=== PATIENT | female | born 2000 | race Caucasian/White ===

== ENCOUNTER 2023-01-18 09:02 | Emergency (ER) | payer OTHER ==
[2023-01-18] MEDS ORDERED: Zofran 4 MG/2 ML VIAL IV ONE (09:12)
[2023-01-18] MEDS ORDERED: Sodium Chloride 0.9% 1000 ML 1,000 ML IV STA (09:12)
[2023-01-18] MEDS ORDERED: Sodium Chloride 0.9% 1000 ML 1,000 ML ONE (09:15)
[2023-01-18] MEDS ORDERED: Zofran 4 MG/2 ML VIAL ONE (09:15)
[2023-01-18 09:41] LABS: Absolute Neutrophil Ct (ANC) 10.97 x10^3/uL (1.4-6.9); BASOPHIL % 0.3 % (0.0-0.4); Basophil (Absolute #) 0.04 x10^3/uL (0-0.4); Eosinophil % 0.9 % (0.00-5.0); Eosinophil (Absolute #) 0.13 x10^3/uL (0-0.5); Hematocrit 36.6 % (35-47); Hemoglobin 11.7 g/dL (12.0-16.0); IMMATURE GRAN # 0.12 x10^3u/L (0.00-0.03); IMMATURE GRAN % 0.9 % (0.00-0.4); Lymphocyte (Absolute #) 1.89 x10^3/uL (1.0-4.6); Lymphocytes % 13.8 % (24.0-44.0); Mean Cell Volume 92.2 fL (78-100); Mean Corpuscular Hemoglobin 29.5 pg (26-32); Mean Platelet Volume 10.4 fL (7.5-11.0); Monocyte (Absolute #) 0.58 x10^3/uL (0.0-1.3); Monocytes % 4.2 % (0.0-12.0); Neutrophil % 79.9 % (36.0-66.0); Platelet Count 226 x10^3/uL (150-450); Red Blood Count 3.97 x10^6/uL (4.1-5.4); Red Cell Distribution Width 13.8 % (11.5-14.0); White Blood Count 13.7 x10^3/uL (4.0-10.5)
--- NOTE | 2023-01-18 09:52 | ERPHSYRPT ---
- History of Present Illness Time Seen by Provider: 01/18/23 09:12 Source: patient Exam Limitations: no limitations Patient Subjective Stated Complaint: Syncope Triage Nursing Assessment: Patient work at [employer] in [employer]. This nurse and a medic student was over in CT assisting with moving a patient. Patient was in CT control and yelled at this nurse stating she didn't feel right and was dizzy. This nurse told patient to sit down. Patient was sitting in chair while this nurse was assisting patient when I heard a thud Patient had a syncopal episode while sitting in chair. Patient out for less than 1 minute. Patient's skin pale, cool and diaphoretic. Patient currently 32 weeks . Blood sugar noted to be 98. Patient denies pain or discomfort. Physician History: 22 years old 1 para 0 at almost 32 weeks gestation is rolled in the ER from [place] with syncopal episode. Patient works as a tax technician, was standing for few minutes and started to feel dizzy/lightheaded, feeling of warmth all over and fell off of the chair with LOC for less than 1 minute. Back to normal when rapid response was called. Patient denies any headache, chest pain palpitations or shortness of breath. Denies any pelvic cramping/vaginal bleeding or discharge. Has a heart tone in 140s. Does report having history of syn copal episodes like this even before after exertion. Timing/Duration: today, resolved prior to arrival, sudden Severity: moderate Associated Symptoms: syncope, No nausea, No vomiting, No abdominal pain, No shortness of breath, No diaphoresis, No chest pain, No headaches, No seizure, No weakness Allergies/Adverse Reactions: No Known Drug Allergies Allergy (Unverified 01/18/23 09:07) Home Medications: No122/Iron/Folic Acid [ Multi Tablet] 1 tab PO DAILY 01/18/23 [History] Hx Tetanus, Diphtheria Vaccination/Date Given: No Hx Influenza Vaccination/Date Given: Yes Hx Pneumococcal Vaccination/Date Given: No Immunizations Up to Date: Yes Travel Risk - International Travel Have you traveled outside of the country in past 3 weeks: No - Coronavirus Screening Are you exhibiting any of the following symptoms?: No Close contact with a COVID-19 positive Pt in past 14-21 Days: No - Vaccine Status Have you recieved a Covid-19 vaccination: Yes [employer]: [employer] - Vaccination Dates Date of 2cond Vaccination (if applicable): na - Review of Systems Constitutional: Fatigue, Weakness Eyes: No Symptoms Ears, Nose, & Throat: No Symptoms Respiratory: No Symptoms Cardiac: No Symptoms Abdominal/Gastrointestinal: No Symptoms Genitourinary Symptoms: No Symptoms Musculoskeletal: No Symptoms Skin: No Symptoms Neurological: Dizziness Psychological: No Symptoms Endocrine: No Symptoms Hematologic/Lymphatic: No Symptoms Immunological/Allergic: No Symptoms - Past Medical History Pertinent Past Medical History: No Neurological History: No Pertinent History ENT History: No Pertinent History Cardiac History: No Pertinent History Respiratory History: No Pertinent History Endocrine Medical History: No Pertinent History Musculoskeletal History: No Pertinent History GI Medical History: No Pertinent History History: No Pertinent History Psycho-Social History: No Pertinent History Female Reproductive Disorders: No Pertinent History - Past Surgical History Past Surgical History: No Neuro Surgical History: No Pertinent History Cardiac: No Pertinent History Respiratory: No Pertinent History Gastrointestinal: No Pertinent History Genitourinary: No Pertinent History Musculoskeletal: No Pertinent History Female Surgical History: No Pertinent History - Social History Smoking Status: Never smoker Exposure to second hand smoke: No Drug Use: none Patient Lives Alone: No - Female History Hx Last Menstrual Period: June 05, 2023 Hx Now: Yes Gestational Age: 32 weeks - Nursing Vital Signs Nursing Vital Signs: Initial Vital Signs Temperature 97.1 F 01/18/23 09:08 Pulse Rate 85 01/18/23 09:08 Respiratory Rate 18 01/18/23 09:08 Blood Pressure 153/103 01/18/23 09:08 O2 Sat by Pulse Oximetry 98 01/18/23 09:08 Pain Scale Pain Intensity 0 - Physical Exam General Appearance: no apparent distress, alert Eye Exam: PERRL/EOMI Ears, Nose, Throat Exam: normal ENT inspection Neck Exam: normal inspection, non-tender, supple, full range of motion Respiratory Exam: normal breath sounds, lungs clear Cardiovascular Exam: regular rate/rhythm, normal heart sounds Gastrointestinal/Abdomen Exam: soft, normal bowel sounds, other (Gravid uterus), No tenderness Back Exam: normal inspection Extremity Exam: normal inspection, normal range of motion Neurologic Exam: alert, oriented x 3, cooperative, 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, normal mood/affect, nml cerebellar function, sensation nml, No motor deficits, No sensory deficit Skin Exam: normal color SpO2 Interpretation: normal SpO2: 98 O2 Delivery: Room Air - Course EKG Interpreted by Me: RATE (105), Sinus Tach, NORMAL AXIS, NORMAL INTERVALS, Non-specific ST Changes Ordered Tests: Active Orders 24 hr Category Date Time Status EKG-ER Only STAT Care 01/18/23 09:12 Active IV Insertion STAT Care 01/18/23 09:12 Active Orthostatic Vital Signs STAT Care 01/18/23 09:13 Active OB >14 WKS 1st GESTATION [US] Stat Exams 01/18/23 09:52 Ordered CBC W DIFF Stat Lab 01/18/23 09:38 Completed CMP Stat Lab 01/18/23 09:15 Completed CULTURE,URINE Stat Lab 01/18/23 09:34 Received TROPONIN Q4H Lab 01/18/23 09:15 Completed TROPONIN Q4H Lab 01/18/23 13:15 Ordered TROPONIN Q4H Lab 01/18/23 17:15 Ordered UA W/RFX UR CULTURE Stat Lab 01/18/23 09:34 Completed Medication Summary Generic Name Dose Route Start Last Admin Trade Name Freq PRN Reason Stop Dose Admin Ceftriaxone Sodium/Dextrose 2 g in 50 mls @ 100 mls/hr 01/18/23 11:33 01/18/23 11:49 Rocephin 2 Gm-D5w 50ml Bag IV 01/18/23 12:02 100 mls/hr STAT STA 100 mls/hr Administration Discontinued Medications Generic Name Dose Route Start Last Admin Trade Name Freq PRN Reason Stop Dose Admin Sodium Chloride 1,000 mls @ 999 mls/hr 01/18/23 09:12 01/18/23 10:51 Sodium Chloride 0.9% 1000 Ml IV 01/18/23 10:12 Infused .Q1H1M STA Infusion Sodium Chloride Confirm 01/18/23 09:15 Sodium Chloride 0.9% 1000 Ml Administered 01/18/23 09:16 Dose 1,000 mls @ ud .ROUTE .STK-MED ONE Ceftriaxone Sodium/Dextrose Confirm 01/18/23 11:46 Rocephin 2 Gm-D5w 50ml Bag Administered 01/18/23 11:47 Dose 2 g in 50 mls @ ud IV .STK-MED ONE Ondansetron HCl 4 mg 01/18/23 09:12 01/18/23 09:36 Ondansetron Hcl 4 Mg/2 Ml Vial IV 01/18/23 09:13 4 mg STAT ONE Administration Ondansetron HCl Confirm 01/18/23 09:15 Ondansetron Hcl 4 Mg/2 Ml Vial Administered 01/18/23 09:16 Dose 4 mg .ROUTE .STK-MED ONE Lab/Rad Data: Laboratory Result Diagrams 01/18/23 09:38 01/18/23 09:15 Laboratory Results 01/18/23 01/18/23 01/18/23 Range/Units 09:38 09:34 09:15 WBC 13.7 H (4.0-10.5) x10^3/uL RBC 3.97 L (4.1-5.4) x10^6/uL Hgb 11.7 L (12.0-16.0) g/dL Hct 36.6 (35-47) % MCV 92.2 (78-100) fL MCH 29.5 (26-32) pg MCHC 32.0 (32-36) g/dL RDW 13.8 (11.5-14.0) % Plt Count 226 (150-450) x10^3/uL MPV 10.4 (7.5-11.0) fL Gran % 79.9 H (36.0-66.0) % Immature Gran % (Auto) 0.9 H (0.00-0.4) % Nucleat RBC Rel Count 0.0 (0.00-0.1) % Eos # (Auto) 0.13 (0-0.5) x10^3/uL Immature Gran # (Auto) 0.12 H (0.00-0.03) x10^3u/L Absolute Lymphs (auto) 1.89 (1.0-4.6) x10^3/uL Absolute Monos (auto) 0.58 (0.0-1.3) x10^3/uL Absolute Nucleated RBC 0.00 (0.00-0.01) x10^3u/L Lymphocytes % 13.8 L (24.0-44.0) % Monocytes % 4.2 (0.0-12.0) % Eosinophils % 0.9 (0.00-5.0) % Basophils % 0.3 (0.0-0.4) % Absolute Granulocytes 10.97 H (1.4-6.9) x10^3/uL Basophils # 0.04 (0-0.4) x10^3/uL Sodium (137-145) mmol/L Potassium (3.5-5.1) mmol/L Chloride (98-107) mmol/L Carbon Dioxide (22-30) mmol/L Anion Gap (5-15) MEQ/L BUN (7-17) mg/dL Creatinine (0.52-1.04) mg/dL Estimated GFR ML/MIN Glucose (74-106) mg/dL Calcium (8.4-10.2) mg/dL Total Bilirubin (0.2-1.3) mg/dL AST (14-36) U/L ALT (0-35) U/L Alkaline Phosphatase (38-126) U/L Troponin I < 0.012 (0.000-0.034) ng/mL Serum Total Protein (6.3-8.2) g/dL Albumin (3.5-5.0) g/dL Urine Color Yellow (Yellow) Urine Appearance Cloudy A (Clear) Urine pH 6.0 (4.6-8.0) Ur Specific Frakes 1.025 (1.005-1.030) Urine Protein 30 (Negative) Urine Glucose (UA) Negative (Negative) mg/dL Urine Ketones Negative (Negative) Urine Blood Negative (Negative) Urine Nitrite Negative (Negative) Urine Bilirubin Negative (Negative) Urine Urobilinogen 1.0 A (0.2) mg/dL Ur Leukocyte Esterase Negative (Negative) U Hyaline Cast (Auto) 3-5 A (0-2) /LPF Urine Microscopic RBC 0-2 (0-5) /HPF Urine Microscopic WBC 11-20 A (0-5) /HPF Ur Epithelial Cells Few (None Seen) /HPF Urine Bacteria Many A (None Seen) /HPF Urine Culture Reflexed YES (NO) 01/18/23 Range/Units 09:15 WBC (4.0-10.5) x10^3/uL RBC (4.1-5.4) x10^6/uL Hgb (12.0-16.0) g/dL Hct (35-47) % MCV (78-100) fL MCH (26-32) pg MCHC (32-36) g/dL RDW (11.5-14.0) % Plt Count (150-450) x10^3/uL MPV (7.5-11.0) fL Gran % (36.0-66.0) % Immature Gran % (Auto) (0.00-0.4) % Nucleat RBC Rel Count (0.00-0.1) % Eos # (Auto) (0-0.5) x10^3/uL Immature Gran # (Auto) (0.00-0.03) x10^3u/L Absolute Lymphs (auto) (1.0-4.6) x10^3/uL Absolute Monos (auto) (0.0-1.3) x10^3/uL Absolute Nucleated RBC (0.00-0.01) x10^3u/L Lymphocytes % (24.0-44.0) % Monocytes % (0.0-12.0) % Eosinophils % (0.00-5.0) % Basophils % (0.0-0.4) % Absolute Granulocytes (1.4-6.9) x10^3/uL Basophils # (0-0.4) x10^3/uL Sodium 137 (137-145) mmol/L Potassium 3.6 (3.5-5.1) mmol/L Chloride 107 (98-107) mmol/L Carbon Dioxide 20 L (22-30) mmol/L Anion Gap 13.7 (5-15) MEQ/L BUN 8 (7-17) mg/dL Creatinine 0.48 L (0.52-1.04) mg/dL Estimated GFR > 60.0 ML/MIN Glucose 89 (74-106) mg/dL Calcium 8.9 (8.4-10.2) mg/dL Total Bilirubin 0.30 (0.2-1.3) mg/dL AST 26 (14-36) U/L ALT 21 (0-35) U/L Alkaline Phosphatase 94 (38-126) U/L Troponin I (0.000-0.034) ng/mL Serum Total Protein 7.1 (6.3-8.2) g/dL Albumin 3.7 (3.5-5.0) g/dL Urine Color (Yellow) Urine Appearance (Clear) Urine pH (4.6-8.0) Ur Specific Frakes (1.005-1.030) Urine Protein (Negative) Urine Glucose (UA) (Negative) mg/dL Urine Ketones (Negative) Urine Blood (Negative) Urine Nitrite (Negative) Urine Bilirubin (Negative) Urine Urobilinogen (0.2) mg/dL Ur Leukocyte Esterase (Negative) U Hyaline Cast (Auto) (0-2) /LPF Urine Microscopic RBC (0-5) /HPF Urine Microscopic WBC (0-5) /HPF Ur Epithelial Cells (None Seen) /HPF Urine Bacteria (None Seen) /HPF Urine Culture Reflexed (NO) - Progress Progress: improved Progress Note: 01/18/23 09:53 22 years old 1 para 0 at almost 32 weeks gestation is rolled in the ER from CT with syncopal episode. Patient works as a tax technician, was standing for few minutes and started to feel dizzy/lightheaded, feeling of warmth all over and fell off of the chair with LOC for less than 1 minute. Back to normal when rapid response was called. Patient denies any headache, chest pain palpitations or shortness of breath. Denies any pelvic cramping/vaginal bleeding or discharge. Has a heart tone in 140s. Does report having history of syncopal episodes like this even before after exertion. She is not in any distress. Nonfocal neuro exam. Does not have any head or neck pain. No abdominal tenderness. She is given fluid bolus, feeling much better on reevaluation. Will obtain baseline labs and ultrasound as patient is unsure of if she hit her belly or not. 01/18/23 09:[address] Rojas OB on-call, reviewed history, agreed with obtaining ult rasound along with baseline work-up and if negative patient would be discharged to go to OB for monitoring. 01/18/23 11:50 Patient is back to her baseline, not in any distress. Denies any new symptoms. Baseline work-up showed white count of 13, fairly unremarkable chemistries. Does have UTI and given a dose of Rocephin and will continue with Keflex to go home. I have obtained ultrasound which showed good heart tones/ movement/no acute pathology of placenta, normal fluid levels, long and closed cervix per preliminary report is pending. Patient would be discharged to go to OB for further evaluation and management per OB physician. I have discussed the results of work-up and plan with patient in detail who understand and agrees with it. 01/18/23 11:52 Discussed with DrKong: Porfirio Counseled pt/family regarding: lab results, diagnosis, need for follow-up, rad results Medical Desision Making - Independent Historian Additional History obtained from: Family - Discussion of managment Care discussed with:: specialist (Review Dr. Rojas) Reviewed:: Need for additional workup Agreed on:: place in obs - Diagnostic Testing Diagnostic test were ordered, analyzed, and reviewed by me: Yes Radiological Interpretation: Reviewed by me - Departure Departure Disposition: Home (To obstetric) Clinical Impression: Syncope and collapse, UTI in Condition: Stable Critical Care Time: No Referrals: GALILEA JULIAN MD [Primary Care Provider] - Follow up with PCP 1 day Instructions: Syncope (Fainting) (DC) Additional Instructions: Go to OB for reevaluation and further management per OB physician recommendations. Drink plenty of fluids to keep yourself well-hydrated. Continue with antibiotics for UTI. Return to ER/call OB if have any worsening of condition like dizziness, abdominal/pelvic pain/vaginal bleeding/headache neck pain etc. Prescriptions: Cephalexin Mh 500 mg [Keflex 500 mg] 500 mg PO TID #21 cap
[2023-01-18 10:07] LABS: ALBUMIN 3.7 g/dL (3.5-5.0); ALKALINE PHOSPHATASE 94 U/L (38-126); ANION GAP 13.7 MEQ/L (5-15); BLOOD UREA NITROGEN 8 mg/dL (7-17); CHLORIDE 107 mmol/L (98-107); Calcium 8.9 mg/dL (8.4-10.2); Carbon Dioxide 20 mmol/L (22-30); Creatinine 1 0.48 mg/dL (0.52-1.04); EST GLOMERULAR FILTRATION RATE > 60.0 ML/MIN; Glucose 89 mg/dL (74-106); Potassium 3.6 mmol/L (3.5-5.1); SGOT/AST 26 U/L (14-36); SGPT/ALT 21 U/L (0-35); SODIUM 137 mmol/L (137-145); Total Protein 7.1 g/dL (6.3-8.2)
[2023-01-18 10:24] LABS: Appearance Cloudy (Clear); Bacteria Many /HPF (None Seen); Bilirubin Negative (Negative); Blood Negative (Negative); Epithelial Cells Few /HPF (None Seen); Glucose, Urine Negative (Negative); Ketones Negative (Negative); Leukocyte Esterase Negative (Negative); Nitrite Negative (Negative); Protein,Urine Dip 30 (Negative); RBC 0-2 /HPF (0-5); Specific Gravity 1.025 (1.005-1.030)
[2023-01-18 10:32] LABS: ADD URINE CULTURE? YES (NO)
[2023-01-18] MEDS ORDERED: ROCEPHIN 2 Gm-D5w 50ML BAG** 2 G/50 ML IVPB IV STA (11:33)
[2023-01-18] MEDS ORDERED: ROCEPHIN 2 Gm-D5w 50ML BAG** 2 G/50 ML IVPB IV ONE (11:46)
[2023-01-18 12:34] VITALS: BP 120/85
[2023-01-18 12:41] VITALS: PULSE 98; O2SAT 98
--- NOTE | 2023-01-18 19:30 | XRAY ---
Indication: Status post fall. Two-dimensional Limited OB ultrasound performed. Comparison: None Single intrauterine in cephalic presentation. heart rate 135 BPM. Posterior placenta without abruption/previa. Nonspecific bilateral renal pelvic prominence measuring 3.6 mm and 4.5 mm each without hydronephrosis. Cervical length is 4.7 cm. BPD measures 8.26 cm corresponding to 33 weeks 2 days. HC measures 29.32 cm corresponding to 32 weeks 2 days. AC measures 28.07 cm corresponding to 32 weeks 1 day. FL measures 6.20 cm corresponding to 32 weeks 1 day. PALMA is 11.6 cm. Impression: Single viable intrauterine with mean gestational age 32 weeks 3 days. Expected date confinement is March 12, 2023. Nothing acute. Comment: Preliminary report was given.
== END 2023-01-18 12:40 | disposition home or self-care (01) ==
LOC: ED 09:02 → OB 12:43 → UNDOADMOB 12:43
DX: O23.43 Unspecified infection of urinary tract in pregnancy, third trimester (principal); N39.0 Urinary tract infection, site not specified; Z3A.32 32 weeks gestation of pregnancy; R55 Syncope and collapse
CPT/HCPCS: 36000; 36415; 76805; 80053; 81001; 84484; 85025; 87086; 93005; 96360; 96365; 96374; 99284; J0696; J2405

== ENCOUNTER 2023-01-18 12:54 | Observation (INO) | payer OTHER ==
[2023-01-18 13:23] VITALS: BP 113/66; PULSE 87
[2023-01-18 14:24] VITALS: O2SAT 97
== END 2023-01-18 15:55 | disposition home or self-care (01) ==
LOC: UNDOADMOB 12:54 → OB 12:54
PROVIDERS: ADMIT Obstetrics & Gynecology; ATTEND Obstetrics & Gynecology
DX: Z34.03 Encounter for supervision of normal first pregnancy, third trimester (principal); Z3A.32 32 weeks gestation of pregnancy
CPT/HCPCS: G0378

== ENCOUNTER 2023-03-18 08:20 | Inpatient (IN) | payer OTHER ==
[2023-03-18 18:15] LABS: Absolute Neutrophil Ct (ANC) 11.83 x10^3/uL (1.4-6.9); BASOPHIL % 0.3 % (0.0-0.4); Basophil (Absolute #) 0.05 x10^3/uL (0-0.4); Eosinophil % 0.7 % (0.00-5.0); Hematocrit 37.2 % (35-47); Hemoglobin 12.2 g/dL (12.0-16.0); IMMATURE GRAN # 0.11 x10^3u/L (0.00-0.03); IMMATURE GRAN % 0.7 % (0.00-0.4); Lymphocyte (Absolute #) 2.42 x10^3/uL (1.0-4.6); Lymphocytes % 15.9 % (24.0-44.0); Mean Corpuscular Hemoglobin 29.8 pg (26-32); Mean Corpuscular Hgb Concent. 32.8 g/dL (32-36); Mean Platelet Volume 10.8 fL (7.5-11.0); Monocyte (Absolute #) 0.69 x10^3/uL (0.0-1.3); Monocytes % 4.5 % (0.0-12.0); Neutrophil % 77.9 % (36.0-66.0); Platelet Count 251 x10^3/uL (150-450); Red Blood Count 4.09 x10^6/uL (4.1-5.4); Red Cell Distribution Width 13.8 % (11.5-14.0); White Blood Count 15.2 x10^3/uL (4.0-10.5)
[2023-03-18] MEDS: CYTOTEC PO SCH ×3 (18:20→22:15)
[2023-03-18 18:56] LABS: ABO TYPING A; Antibody Screen NEGATIVE (NEGATIVE); RH TYPING POSITIVE
[2023-03-18 19:35] LABS: Amphetamine,Urine NEGATIVE (NEGATIVE); Barbiturate,Urine NEGATIVE (NEGATIVE); Benzodiazepine,Urine NEGATIVE (NEGATIVE); Cocaine,Urine NEGATIVE (NEGATIVE); Methadone,Urine NEGATIVE (NEGATIVE); Opiate,Urine NEGATIVE (NEGATIVE); PCP,Urine NEGATIVE (NEGATIVE); THC,Urine NEGATIVE (NEGATIVE)
[2023-03-19] MEDS: CYTOTEC PO SCH ×4 (00:15→06:15)
[2023-03-19] MEDS ORDERED: OMNIPEN 2 GM*** 2 G in Sodium Chloride 100ML MINI-BAG PLUS 100 ML IV ONE (06:00)
[2023-03-19] MEDS ORDERED: BRETHINE 1 MG/ML SQ PRN (06:00)
[2023-03-19] MEDS ORDERED: PITOCIN 30 UNITS/ LR 500 ML 30 UNITS/500 ML PLAST..BAG IV SCH ×2 (06:00)
[2023-03-19] MEDS ORDERED: Lactated Ringers 1,000 ML IV ONE (08:08)
[2023-03-19] MEDS ORDERED: Ephedrine Sulfate 50 MG/ML IV PRN (08:08)
[2023-03-19] MEDS ORDERED: FENTANYL 2 MCG-BUPIV 0.125%-NS 250 ML Epidur 250 ML EPIDURAL SCH (08:15)
[2023-03-19] MEDS: Lactated Ringers 1,000 ML IV SCH ×3 (08:17→21:33)
[2023-03-19] MEDS ORDERED: XYLOCAINE 1% HCL 20 ML MDV IJ PRN (12:00)
[2023-03-19] MEDS: OMNIPEN 1 GM*** 1 GM in Sodium Chloride 100ML MINI-BAG PLUS 100 ML IV SCH ×3 (13:04→21:10)
[2023-03-19] MEDS ORDERED: Reglan 10 MG/2 ML IV SCH (21:15)
[2023-03-19] MEDS ORDERED: Pepcid 20 MG VIAL IV SCH (21:15)
[2023-03-19] MEDS ORDERED: SOD CITRATE-CITRIC ACID SOLN PO SCH (21:15)
[2023-03-19] MEDS ORDERED: CEFAZOLIN 2 GM-D5W BAG** 2 GM/50 ML ML IV SCH (21:30)
[2023-03-19] MEDS ORDERED: XYLOCAINE 2%/Epi 1:200000 20ML VIAL MPF ONE (21:54)
[2023-03-19] MEDS ORDERED: SUBLIMAZE 100 MCG/2 ML ONE (21:54)
[2023-03-19] MEDS ORDERED: OFIRMEV 100 ML IV ONE (22:01)
[2023-03-19] MEDS ORDERED: BENADRYL 50 MG/ML IV PRN (22:12)
[2023-03-19] MEDS ORDERED: Nubain 10 MG/ML IV PRN (22:12)
[2023-03-19] MEDS ORDERED: DEMEROL 50 MG IV PRN (22:12)
[2023-03-19] MEDS ORDERED: Narcan 0.4 MG/ML IV PRN (22:12)
[2023-03-19] MEDS ORDERED: MORPHINE SULFATE 2 MG INJ IV PRN (22:12)
[2023-03-19] MEDS ORDERED: CLARITIN 10 MG PO PRN (22:12)
[2023-03-19] MEDS ORDERED: Zofran 4 MG/2 ML VIAL IV PRN (22:12)
[2023-03-19] MEDS ORDERED: HOLD NARCOTIC ANALGESICS AND SEDATIVES X24 HR MC PRN (22:12)
[2023-03-19] MEDS ORDERED: PERCOCET TABLET 5/325MG PO PRN (22:18)
[2023-03-19] MEDS ORDERED: Astramorph-Pf 5 MG/10 ML ONE (22:18)
[2023-03-19] MEDS ORDERED: Pitocin 10 UNITS/ML ONE (22:53)
[2023-03-19] MEDS ORDERED: Decadron 4 MG INJ ONE (22:56)
[2023-03-19] MEDS ORDERED: TORAdol 30 mg Injection ONE (22:56)
[2023-03-19] MEDS ORDERED: Naropin 0.5% 30 ML VIAL ONE (22:57)
[2023-03-19] MEDS ORDERED: PHENYLEPHRINE HCL ONE (23:20)
[2023-03-20 05:14] LABS: Absolute Neutrophil Ct (ANC) 20.64 x10^3/uL (1.4-6.9); BASOPHIL % 0.1 % (0.0-0.4); Basophil (Absolute #) 0.03 x10^3/uL (0-0.4); Eosinophil (Absolute #) 0 x10^3/uL (0-0.5); Hematocrit 33.8 % (35-47); Hemoglobin 10.9 g/dL (12.0-16.0); IMMATURE GRAN # 0.18 x10^3u/L (0.00-0.03); IMMATURE GRAN % 0.8 % (0.00-0.4); Lymphocyte (Absolute #) 0.95 x10^3/uL (1.0-4.6); Lymphocytes % 4.3 % (24.0-44.0); Mean Cell Volume 93.1 fL (78-100); Mean Corpuscular Hgb Concent. 32.2 g/dL (32-36); Mean Platelet Volume 11.7 fL (7.5-11.0); Monocyte (Absolute #) 0.38 x10^3/uL (0.0-1.3); Monocytes % 1.7 % (0.0-12.0); Neutrophil % 93.1 % (36.0-66.0); Platelet Count 190 x10^3/uL (150-450); Red Blood Count 3.63 x10^6/uL (4.1-5.4); Red Cell Distribution Width 13.6 % (11.5-14.0); White Blood Count 22.2 x10^3/uL (4.0-10.5)
[2023-03-20 06:25] LABS: Slide Review 1 YES
[2023-03-20] MEDS: OMNIPEN 1 GM*** 1 GM in Sodium Chloride 100ML MINI-BAG PLUS 100 ML IV SCH ×2 (06:33→11:17)
[2023-03-20] MEDS: Dextrose 5%-Lr IV Solution 1000 ML 1,000 ML IV SCH ×2 (06:33→10:44)
[2023-03-20] MEDS: Lactated Ringers 1,000 ML IV SCH ×2 (06:33→06:34)
--- NOTE | 2023-03-20 07:59 | OP ---
SURGERY DATE/TIME: 03/19/2023 5177 PREOPERATIVE DIAGNOSES: 1) Failure to progress in labor. 2) Term intrauterine . POSTOPERATIVE DIAGNOSES: 1) Failure to progress in labor. 2) Term intrauterine . PROCEDURE: Primary low transverse section. SURGEON: Tin Lopez M.D. ANESTHESIA: Spinal by Julian Lazaro CRNA. QUANTITATIVE BLOOD LOSS: 541 ml. IV FLUIDS: 1900 cc of Crystalloid. URINE OUTPUT: 400 ml of clear straw-colored urine. SPECIMEN: None. DESCRIPTION OF PROCEDURE: After informed, written consent was obtained, the patient was taken to the OR. She underwent spinal anesthesia and was prepped and draped in the usual sterile fashion. After adequate level of anesthesia was assessed, a low transverse skin incision was made by knife and carried down through the subcutaneous fat to the level of the fascia. The fascia was nicked on both sides of the midline and extended horizontally using curved Miller scissors. The superior free edge of the fascia was then grasped with Shruti clamps and the underlying rectus muscles were dissected free. The same was repeated inferiorly. The peritoneal cavity was then opened bluntly and extended in horizontal and a bladder flap was created and reflected over the lower uterine segment. A low transverse uterine incision was made by knife and carried down to the level of the amniotic membranes which were artificially ruptured and extended bluntly in horizontal fashion. A viable male infant was delivered from the vertex presentation with caput present. Strong cry immediately present upon delivery. Bulb syringed the oropharynx and nares. The cord was then clamped and cut and he was handed off to the awaiting nursery team. The placenta was extracted and the uterus was exteriorized. The uterine cavity was sponge curetted clean with a lap sponge and then the uterine incision was closed with #1 chromic in running locked fashion. There was a small inferior extension on the right aspect which was also closed with #1 chromic with good closure and good hemostasis achieved. Posterior cul-de-sac was wiped free of blood and clot with a moist lap sponge and the uterus was returned to the peritoneal cavity. The lateral gutters were wiped free of blood and clot with a moist lap sponge and then uterine incision was inspected and noted to have good hemostasis and good closure. Next, the fascia was closed with 0 Vicryl in a running fashion with good closure and good hemostasis at that level as well. The subcutaneous fat was irrigated with warm, sterile saline and finally the skin layer was closed with 4-0 undyed Vicryl in running subcuticular fashion. Steri-Strips and occlusive dressing were placed over the incision and the patient was transferred to the recovery room in good condition.
[2023-03-20] MEDS ORDERED: LANSINOH 40 GM TOP PRN (09:55)
[2023-03-20] MEDS: Docusate Sodium 100 MG PO SCH ×2 (10:41→21:30)
[2023-03-20] MEDS: FERREX 150 PO SCH (10:41)
[2023-03-20] MEDS: Mylicon 80MG PO PRN ×2 (13:54→21:30)
[2023-03-20] MEDS: MOTRIN 400 MG PO PRN (21:30)
[2023-03-20] MEDS ORDERED: NORCO 5/325 MG PO PRN (22:00)
[2023-03-21] MEDS: MOTRIN 400 MG PO PRN (09:45)
[2023-03-21] MEDS: FERREX 150 PO SCH (09:47)
[2023-03-21] MEDS: Docusate Sodium 100 MG PO SCH (09:47)
--- NOTE | 2023-03-21 13:31 | PCM.DS ---
Discharge Summary Date of Admission: 03/19/23 08:20 Admitting Physician: GALILEA JULIAN Consults: Consults on Case 03/19/23 21:15 Notify Anesthesia Provider PRN 03/19/23 22:12 Notify Anesthesia Provider PRN Primary Care Provider: GALILEA JULIAN Allergies Allergies No Known Drug Allergies Allergy (Unverified 01/18/23 09:07) Hospital Summary - Hospital Course Hospital Course: patient induced at 40wks, had primary for failure to progress. doing great post-op, pain is controlled. she is ambulatory and , mild lochia and tolerating po intake well. - Vitals & Intake/Output Vital Signs: Vital Signs Temperature 98.1 F 03/21/23 08:00 Pulse Rate 79 03/21/23 08:00 Respiratory Rate 16 03/21/23 08:00 Blood Pressure 120/56 03/21/23 08:00 O2 Sat by Pulse Oximetry 100 03/21/23 08:00 Intake & Output: Intake & Output 03/19/23 03/20/23 03/21/23 03/22/23 11:59 11:59 11:59 11:59 Intake Total 2200 1200 2150 Output Total 450 1200 Balance 2200 750 950 Weight 99.79 kg - Lab Result Diagrams: 03/20/23 04:30 Micro Results-Entire Visit: Microbiology 03/19/23 11:17 Urine Culture - Final Catherized NO GROWTH Discharge Exam General Appearance: no apparent distress Neurologic Exam: alert, oriented x 3 Respiratory Exam: normal breath sounds, lungs clear, No respiratory distress Cardiovascular Exam: regular rate/rhythm, normal heart sounds Gastrointestinal/Abdomen Exam: soft, other (incision clean, dry, intact and well approximated), No tenderness, No mass Extremity Exam: normal inspection, normal range of motion Final Diagnosis/Problem List - Final Discharge Diagnosis/Problem (1) delivery, delivered, current hospitalization Current Visit: Yes Status: Acute Code(s): O82 - ENCOUNTER FOR DELIVERY WITHOUT INDICATION - Discharge Disposition: Home, Self-Care Condition: Stable Prescriptions: New Hydrocodone/Acetaminophen [Hydrocodone-Acetamin 7.5-325] 1 each PO Q6H PRN PRN #28 tablet MDD 4 PRN Reason: Pain Continue No122/Iron/Folic Acid [ Multi Tablet] 1 tab PO DAILY Discontinued Cephalexin Mh 500 mg [Keflex 500 mg] 500 mg PO TID #21 cap Follow up with: GALILEA JULIAN MD [Primary Care Provider] -
[2023-03-21 17:07] VITALS: PULSE 78
[2023-03-21 20:05] VITALS: BP 124/69; RESP 17; TEMP 99.1; O2SAT 100
== END 2023-03-21 19:30 | disposition home or self-care (01) | DRG 788 ==
LOC: OB 08:20 → OBSVTOIN 03-19 08:20
PROVIDERS: ADMIT Family Medicine; ATTEND Family Medicine
PROC: 10D00Z1 Extraction of Products of Conception, Low, Open Approach (ICD-10-PCS; principal; 2023-03-19)
DX: O61.8 Other failed induction of labor (principal); Z3A.40 40 weeks gestation of pregnancy; Z37.0 Single live birth; Z20.828 Contact with and (suspected) exposure to other viral communicable diseases
CPT/HCPCS: 36415; 80307; 85025; 86850; 86900; 86901; 87086; J0290; J0690; J1100; J1885; J2274; J2371; J2590; J2795; J3010; A9270-GY

== ENCOUNTER 2024-08-25 07:53 | Day surgery (SDC) | payer OTHER ==
--- NOTE | 2024-08-23 14:08 | HP ---
HISTORY OF PRESENT ILLNESS: Patient is a 23-year-old female who presents with stomach cramping and pain. She has nausea. She has heartburn. She has diarrhea. She has been on some dicyclomine, and it helps a little bit. She does eat okay, but greasy food can make it worse. She does have some bloating. Apparently, she had an ultrasound of her gallbladder that showed no stones. PAST MEDICAL HISTORY: Migraines, seizure disorder. HOME MEDICATIONS: Dicyclomine. ALLERGIES: Negative. PAST SURGICAL HISTORY: , tonsillectomy. SOCIAL HISTORY: Negative. FAMILY HISTORY: Negative. REVIEW OF SYSTEMS: CONSTITUTIONAL: Denies fever or chills. CHEST: Denies shortness of breath. CARDIOVASCULAR: Denies chest pain. ABDOMEN: Reports diffuse abdominal pain. PHYSICAL EXAMINATION: GENERAL: No acute distress. CARDIOVASCULAR: Regular rate and rhythm. RESPIRATORY: Nonlabored. No shortness of breath. ABDOMEN: Soft. ASSESSMENT: Heartburn; epigastric pain; diffuse abdominal pain, cramping and nausea; diarrhea; lower abdominal pain. PLAN: EGD and colonoscopy with Dr. Alex Manuel. This report was dictated for Dr. Manuel by Nikki Millan NP.
[2024-08-25] MEDS: Lactated Ringers 1,000 ML IV SCH (08:04)
[2024-08-25 08:09] LABS: HCG URINE TEST NEGATIVE (NEGATIVE)
[2024-08-25 08:20] VITALS: RESP 18
[2024-08-25] MEDS ORDERED: propofoL IV ONE ×2 (09:11→10:13)
[2024-08-25] MEDS ORDERED: Versed 2 MG/2 ML Injection ONE (09:49)
[2024-08-25 11:02] VITALS: BP 119/81; PULSE 66; TEMP 98.4; O2SAT 96
--- NOTE | 2024-08-26 10:08 | OP ---
SURGERY DATE/TIME: PREOPERATIVE DIAGNOSIS: Patient has epigastric pain and abdominal pain. POSTOPERATIVE DIAGNOSES: 1) On the EGD, there was grade 2/4 gastroesophageal reflux disease. 2) On the colonoscopic examination, it was basically normal. Patient did have moderate internal hemorrhoids. PROCEDURE: Esophagogastroduodenoscopy, colonoscopy. Traps were placed for samples. As it was filled up, it was submitted for clostridium difficile, ova and parasite, and stool pathogens. SURGEON: Alex Manuel MD. DESCRIPTION OF PROCEDURE: Patient was taken to endoscopy. General anesthetic. Scope was introduced. Vocal cords normal. Pharyngoesophageal junction normal. Esophagus normal. Grade 2/4 GERD. No hiatal hernia. Fundus, body and antrum normal. Pylorus was normal. Duodenal bulb normal. Second portion normal. Scope was looped upon itself and normal. Anal digital examination was satisfactory. Scope was introduced, moderate internal hemorrhoids. Scope was advanced to the cecum. Circumferential withdrawal was normal. Patient tolerated the procedure well. Findings discussed with the in the waiting room.
== END 2024-08-25 11:06 | disposition home or self-care (01) ==
LOC: SDC 07:53
PROVIDERS: ATTEND Surgery
DX: R10.13 Epigastric pain (principal); R10.9 Unspecified abdominal pain; K21.9 Gastro-esophageal reflux disease without esophagitis; K64.8 Other hemorrhoids
CPT/HCPCS: 81025; 87045; 87046; 87427; J2250; J2704